=== PATIENT | male | born 1950 | race Caucasian/White ===

== ENCOUNTER 2019-08-09 17:31 | Observation (INO) ==
[2019-08-09] MEDS ORDERED: Naloxone 0.4 MG/ML INJ IVP PRN (21:47)
[2019-08-10 05:33] LABS: Basophils % 0.2 %; Eosinophils % 0.2 %; Hematocrit 35.7 % (37.5-50.1); Hemoglobin 11.2 g/dL (12.9-16.9); Immature Granulocytes % 1.5 % (0-4); Lymphocytes # 1.3 K/mcL (0.6-4.6); Lymphocytes % 21.2 %; Mean Corpuscular HGB Conc 31.4 g/dL (31.6-35.5); Mean Corpuscular Hemoglobin 27.3 pg (28.0-33.3); Mean Corpuscular Volume 87.1 fL (83.0-100.0); Mean Platelet Volume 12.1 fL (9.4-12.4); Monocytes # 1.3 K/mcL (0.0-1.3); Monocytes % 21.6 %; Neutrophils # 3.3 K/mcL (1.6-8.9); Platelet Count 222 K/mcL (140-400); Red Cell Distribution Width 17.3 % (11.5-14.5); Segmented Neutrophils % 55.3 %
[2019-08-10 05:48] LABS: INR 1.5; Prothrombin Time 17.4 Seconds (9.4-12.1)
[2019-08-10 05:50] LABS: BUN/Creatinine Ratio 16 (6-26); Blood Urea Nitrogen 13 mg/dL (8-23); Calcium 9.6 mg/dL (8.6-10.3); Carbon Dioxide 24 mEq/L (23-29); Chloride 105 mEq/L (98-107); Glucose 97 mg/dL (70-105); Osmolality,Calculated 286 (280-300); Potassium 3.6 mEq/L (3.5-5.1); Sodium 138 mEq/L (136-145); eGFR For African Americans > 60 (> 60); eGFR For Non-African Americans > 60 (> 60)
[2019-08-10 06:04] LABS: Platelet Estimate Normal (Normal); Reactive Lymphocytes Present (Not Present)
[2019-08-10] MEDS ORDERED: Oxymetazoline Nasal SPRAY BOTTLE NS PRN (09:13)
[2019-08-10 14:08] VITALS: BP 140/60
== END 2019-08-10 15:40 | disposition home or self-care (01) ==
LOC: 3BNU 17:31 → EMEROOARM 17:31 → SUATTDRO 20:28 → 3BNU 21:12
PROVIDERS: ADMIT Family Medicine; ATTEND Internal Medicine

== ENCOUNTER 2020-04-17 14:14 | Observation (INO) ==
[2020-04-17] MEDS ORDERED: Ondansetron 4 MG/2 ML VIAL IVP PRN (16:18)
[2020-04-17] MEDS ORDERED: Naloxone 0.4 MG/ML INJ IVP PRN (16:18)
[2020-04-17] MEDS ORDERED: *HR* Labetalol 20 MG/4 ML SYRINGE IVP PRN (16:22)
[2020-04-17] MEDS: Ringers Solution, Lactated 1,000 ML IVC SCH (18:35)
[2020-04-18] MEDS: Acetaminophen 325 MG TABLET PO PRN ×2 (02:04→10:21)
[2020-04-18] MEDS: Ringers Solution, Lactated 1,000 ML IVC SCH (05:17)
[2020-04-18] MEDS ORDERED: Lidocaine/EPI 1:100k 1% 50 ML VIAL ONE (08:03)
[2020-04-18] MEDS ORDERED: 0.9 % Sodium Chloride 500 ML ONE (08:03)
[2020-04-18 08:31] LABS: Mean Platelet Volume 13.3 fL (9.4-12.4); Nucleated Red Blood Cells 0.8 /100 WBC (0)
[2020-04-18 08:33] LABS: Hematocrit 26.8 % (37.5-50.1); INR 1.6; Immature Platelets 19.8 % (1.1-6.1); Mean Corpuscular HGB Conc 29.9 g/dL (31.6-35.5); Mean Corpuscular Hemoglobin 27.8 pg (28.0-33.3); Mean Corpuscular Volume 93.1 fL (83.0-100.0); Platelet Count 233 K/mcL (140-400); Red Blood Count 2.88 M/mcL (4.19-5.50); White Blood Count 12.5 K/mcL (4.3-11.1)
[2020-04-18 08:36] LABS: Activated Partial Thrombo Time 39.1 Seconds (26.0-36.0)
[2020-04-18 08:48] LABS: Albumin 3.7 g/dL (3.5-5.7); Albumin/Globulin Ratio 0.7 (1.1-2.2); Bilirubin,Total 0.5 mg/dL (0.3-1.0); Calcium 9.2 mg/dL (8.6-10.3); Globulin 5.2 g/dL (2.4-3.5); Magnesium 1.5 mg/dL (1.6-2.6); Phosphorous 4.2 mg/dL (2.7-4.5); Potassium 4.1 mEq/L (3.5-5.1); Total Protein 8.9 g/dL (6.4-8.9)
[2020-04-18 11:14] LABS: Adenovirus Not Detected (Not Detect); Bordetella Pertussis Not Detected (Not Detect); Chlamydophila pneumoniae Not Detected (Not Detect); Coronavirus 229E Not Detected (Not Detect); Coronavirus HKU1 Not Detected (Not Detect); Coronavirus NL63 Not Detected (Not Detect); Coronavirus OC43 Not Detected (Not Detect); Human Metapneumovirus Not Detected (Not Detect); Human Rhinovirus/Enterovirus Not Detected (Not Detect); Influenza A Subtype 2009 H1 Not Detected (Not Detect); Influenza B Not Detected (Not Detect); Mycoplasma pneumoniae Not Detected (Not Detect); Parainfluenza Virus 1 Not Detected (Not Detect); Parainfluenza Virus 2 Not Detected (Not Detect); Parainfluenza Virus 3 Not Detected (Not Detect); Parainfluenza Virus 4 Not Detected (Not Detect); Respiratory Syncytial Virus Not Detected (Not Detect); SARS-CoV-2 Not Detected (Not Detect)
[2020-04-18] MEDS ORDERED: *HR* Propofol 200 MG/20 ML VIAL IVP ONE (11:30)
[2020-04-18] MEDS ORDERED: *HR* FentaNYL (PF) 100 MCG/2 ML VIAL ONE (11:30)
[2020-04-18] MEDS ORDERED: Lidocaine -MPF 2% 2 ML VIAL ONE (11:31)
[2020-04-18] MEDS ORDERED: Dexamethasone 4 MG/ML VIAL ONE (11:31)
[2020-04-18] MEDS ORDERED: Ondansetron 4 MG/2 ML VIAL ONE (11:31)
[2020-04-18 11:36] LABS: Eosinophils # 0.1 K/mcL (0.0-0.6); Monocytes # 4.3 K/mcL (0.0-1.3); Neutrophils # 4.4 K/mcL (1.6-8.9); Platelet Estimate Normal (Normal)
[2020-04-18 11:41] LABS: Toxic Vacuolation Present (Not Present)
[2020-04-18] MEDS ORDERED: *HR* OxyCODONE Immed Rel 5 MG TABLET PO PRN (11:43)
[2020-04-18] MEDS ORDERED: *HR* Midazolam HCl 2 MG/2 ML VIAL ONE (11:47)
[2020-04-18] MEDS ORDERED: Famotidine 20 MG/2 ML VIAL ONE (11:48)
[2020-04-18 11:55] LABS: Anisocytosis 1+ (Not Present)
[2020-04-18] MEDS ORDERED: cefTRIAXone 1,000 MG in Water for inj. (sterile) 10 ML IVP SCH ×2 (13:00→14:00)
[2020-04-18] MEDS ORDERED: Ringers Solution, Lactated 1,000 ML IVC SCH ×2 (13:45→13:57)
[2020-04-18] MEDS ORDERED: *HR* Labetalol 20 MG/4 ML SYRINGE IVP PRN (13:57)
[2020-04-18] MEDS ORDERED: Ondansetron 4 MG/2 ML VIAL IVP PRN (13:57)
[2020-04-18] MEDS ORDERED: Naloxone 0.4 MG/ML INJ IVP PRN (13:57)
[2020-04-18] MEDS ORDERED: Acetaminophen 325 MG TABLET PO PRN (13:57)
[2020-04-18] MEDS ORDERED: Rasburicase 14 MG in 0.9 % Sodium Chloride 50 ML IVPB STA (21:59)
[2020-04-18 23:08] VITALS: BP 130/60
[2020-04-19] MEDS ORDERED: NON-FORMULARY MEDICATION 1 EACH EACH (Multivitamin [Daily Multiple Vitamin] 1 TAB) PO SCH (09:00)
[2020-04-19] MEDS ORDERED: Multivit/Ca/Min/Fe/FA 1 TAB TABLET PO SCH (09:00)
== END 2020-04-19 03:24 | disposition short-term general hospital (02) ==
LOC: 3ANU → SUATTDRO 15:51
PROVIDERS: ADMIT Internal Medicine; ATTEND Internal Medicine